=== PATIENT | male | born 1990 | race African-American/Black ===

== ENCOUNTER 2023-12-31 18:14 | Emergency (ER) | payer SELFPAY ==
[2023-12-31 18:20] VITALS: BP 117/75; PULSE 71; TEMP 36.8; O2SAT 100; BMI 28.1
--- NOTE | 2023-12-31 19:32 | ED_ITS ---
HPI - Wound/Laceration General Chief Complaint: Wound/Laceration Stated Complaint: TOE INFECTION Time Seen by Provider: 12/31/23 19:27 Source: patient Mode of arrival: walk-in Limitations: no limitations History of Present Illness HPI narrative: 33 year old male presents to the ED for an infection concern of his left great toe. States he was accidentally poked under the middle of the nail while getting a pedicure about 2 weeks ago. He has had continued discomfort and drainage from the area. He has been unable to sleep at night due to the throbbing pain. States he has been hanging the foot off of the bed at night. Also reports taking Tylenol PM without relief. Denies fever, chills, weakness, N/T. Related Data Previous Rx's ?Medication ?Instructions ?Recorded cephalexin 500 mg capsule 500 mg PO TID 10 days #30 caps 12/31/23 doxycycline monohydrate 100 mg 100 mg PO BID 10 days #20 caps 12/31/23 capsule naproxen 500 mg tablet (Naprosyn) 500 mg PO Q12H PRN pain #12 tabs 12/31/23 Allergies Allergy/AdvReac Type Severity Reaction Status Date / Time No Known Drug Allergies Allergy Verified 12/31/23 18:20 Review of Systems ROS Constitutional Denies: fever or chills Respiratory Denies: shortness of breath Gastrointestinal Denies: abdominal pain Integumentary/Breast Reports: sores and nail changes; Denies: rash Neurological Reports: numbness in extremities and weakness in extremities Exam Constitutional Vital Signs, click to edit/add: Last Vital Signs Temp 98.2 F 12/31/23 18:20 Pulse 71 12/31/23 18:20 Resp 20 12/31/23 18:20 BP 117/75 12/31/23 18:20 Pulse Ox 100 12/31/23 18:20 O2 Del Method Room Air 12/31/23 18:20 Eye Common normals: conjunctivae normal and no scleral icterus Neck & C-Spine Common normals: supple Chest Chest: symmetrical chest wall rise Respiratory Common normals: normal respiratory effort Effort & inspection: able to speak in complete sentences and symmetric chest movement Cardio Common normals: regular rate Peripheral pulses: posterior tibial pulses present and dorsalis pedis pulses present Extremity Common normals: normal capillary refill Other: Drainage, tenderness to distal mid great toe of left foot, at mid edge of nail. Pt also has ingrown nail along medial surface of toe; no tenderness, drainage, erythema at this site. Distal toe tender. Pad of the toe is soft. No concern for felon. Distal sensation intact. Course Vital Signs Vital signs: Vital Signs Temperature 98.2 F 12/31/23 18:20 Pulse Rate 71 12/31/23 18:20 Respiratory Rate 20 12/31/23 18:20 Blood Pressure 117/75 12/31/23 18:20 Pulse Oximetry 100 12/31/23 18:20 Oxygen Delivery Method Room Air 12/31/23 18:20 Temperature 98.2 F 12/31/23 18:20 Pulse Rate 71 12/31/23 18:20 Respiratory Rate 20 12/31/23 18:20 Blood Pressure 117/75 12/31/23 18:20 Pulse Oximetry 100 12/31/23 18:20 Oxygen Delivery Method Room Air 12/31/23 18:20 MDM - Wound/Laceration MDM Narrative Medical decision making narrative: Prescriptions were provided for Naprosyn, doxycycline, and Keflex. He requested a post-op shoe. The shoe was ordered and applied. The application was checked and was appropriate; the LLE remained NVI. Follow up with podiatry for a recheck, further evaluation and treatment. Medical Records Attestation: I reviewed the patient's medical records. Discharge Plan Discharge Stand Alone Forms: Portal Instructions Chief Complaint: Wound/Laceration Clinical Impression: Infection of toe Patient Disposition: Home, Self-Care Time of Disposition Decision: 19:28 Condition: Good Mode of Transportation: Private Vehicle Prescriptions / Home Meds: New doxycycline monohydrate 100 mg capsule 100 mg PO BID 10 Days Qty: 20 0RF cephalexin 500 mg capsule 500 mg PO TID 10 Days Qty: 30 0RF naproxen [Naprosyn] 500 mg tablet 500 mg PO Q12H PRN (Reason: pain) Qty: 12 0RF Print Language: Maori Instructions: Cellulitis (ED), Ingrown Nail (ED), Acute Wounds (ED) Referrals: Physician,Non-Staff, [Primary Care Provider] - 1 week Valentin Garcia DPM [Physician] - 1 week Discharge Date/Time: 12/31/23 19:50
[2023-12-31 19:50] VITALS: BP 138/88; PULSE 68; O2SAT 99
== END 2023-12-31 19:50 | disposition home or self-care (01) ==
PROVIDERS: Emergency Provider Emergency Medicine
DX: L08.9 Local infection of the skin and subcutaneous tissue, unspecified (principal)
CPT/HCPCS: 99283